=== PATIENT | female | born 1980 | race Two or more races ===

== ENCOUNTER 2024-11-10 11:35 | Emergency (ER) | payer MEDICAID, SELFPAY ==
[2024-11-10 11:57] VITALS: BP 139/86; PULSE 76; RESP 16; TEMP 36.8; O2SAT 97; BMI 35.6
[2024-11-10] MEDS: DiphenhydrAMINE 25 MG CAPSULE PO (12:23)
[2024-11-10] MEDS: DEXAMETHASONE SOD PHOS INJ 10 MG/ML VIAL PO (12:23)
[2024-11-10 13:56] LABS: Alanine Aminotransferase 30 U/L (10-49); Albumin, Serum 4.4 gm/dL (3.5-5.0); Albumin/Globulin Ratio 1.6 (1.2-2.2); Alkaline Phosphatase 88 U/L (46-116); Anion Gap 8 (7-16); Aspartate Amino Transferase 20 U/L (0-34); BUN/Creatinine Ratio 18 Ratio (12-20); Bilirubin,Total 0.6 mg/dL (0.3-1.2); Blood Urea Nitrogen 11 mg/dL (9-23); Calcium 9.8 mg/dL (8.3-10.6); Calcium (Corrected) 9.8 mg/dL (8.5-10.1); Carbon Dioxide 28.7 mMol/L (20.0-31.0); Chloride 104 mMol/L (98-107); Creatinine (Component) 0.6 mg/dL (0.6-1.3); Estimated Creatinine Clearance 120.2 mL/min (>60); Globulin 2.7 gm/dL (2.3-3.5); Glucose 85 mg/dL (74-106); Osmolality,Calculated 279 (275-295); Potassium 3.9 mMol/L (3.4-5.1); Sodium 141 mMol/L (136-145); Total Protein 7.1 gm/dL (5.7-8.2); eGFR > 60 See Note
--- NOTE | 2024-11-10 14:03 | EDNOTE_ITS ---
ED Skin Abcess FB-RME/HPI General Chief complaint: Skin/Abscess/Foreign Body Stated complaint: ITCHING ON ENTIRE BODY X2 DAYS Time Seen by Provider: 11/10/24 11:40 Arrival date/time: 11/10/24 11:35 44-year-old female presents the emergency department today complains of a 2-day history of itching patient ports no fever nausea or vomiting no rash Limitations: no limitations Related Data Previous Rx's ?Medication ?Instructions ?Recorded azithromycin 250 mg tablet See Rx Instructions PO .COM PLEX #6 06/04/22 tabs ibuprofen 600 mg tablet 600 mg PO TID PRN fever or p ain 06/04/22 #30 tabs diphenhydramine HCl 25 mg capsule 25 mg PO Q8H PRN all ergic symptoms 11/10/24 (Benadryl) #30 caps prednisone 20 mg tablet 20 mg PO BID 3 days #6 tabs 11/10/24 Allergies Allergy/AdvReac Type Severity Reaction Status Date / Time No Known Allergies Allergy Verified 11/10/24 11:38 Review of Systems Review of Systems Systems Reviewed: All systems reviewed, normal except as documented Constitutional Constitutional: Reports system reviewed and no additional complaints, except as documented, Denies fever(s) and Denies headache(s) Eyes Eyes: Reports system reviewed and no additional complaints, except as documented and Denies blurry vision ENT Ears, Nose, Mouth, and Throat: Reports system reviewed and no additional complaints, except as documented, Denies headache(s), Denies nasal congestion and Denies nasal discharge Cardiovascular Cardiovascular: Reports system reviewed and no additional complaints, except as documented, Denies chest pain and Denies dyspnea Respiratory Respiratory: Reports system reviewed and no additional complaints, except as documented, Denies chest congestion, Denies cough and Denies dyspnea Gastrointestinal Gastrointestinal: Reports system reviewed and no additional complaints, except as documented and Denies abdominal pain Integumentary/Breasts Skin/Breast: Reports system reviewed and no additional complaints, except as documented and Reports pruritus Neurologic Neurologic: Reports system reviewed and no additional complaints, except as documented, Reports as per HPI and Denies headache(s) Past Medical History Social History SMOKING STATUS: Never smoker ED Exam General Limitations: Present no limitations General appearance: Present alert and in no apparent distress Head Head exam: Present atraumatic, normocephalic and normal inspection Eye Eye exam: Present normal appearance, PERRL and EOMI ENT ENT exam: Present normal exam, normal oropharynx and mucous membranes moist Neck Neck exam: Present normal inspection, full ROM and trachea midline Chest Chest inspection: Present normal inspection and symmetric chest wall rise Respiratory Respiratory exam: Present normal lung sounds bilaterally Cardiovascular Cardiovascular exam: Present regular rate, normal rhythm and normal heart sounds Abdominal Exam Abdominal exam: Present soft and normal bowel sounds Extremities Exam Extremities exam: Present normal inspection and full ROM Back Exam Back exam: Present normal inspection and full ROM Neurological Exam Neurological exam: Present alert, oriented X3 and CN II-XII intact Psychiatric Psychiatric exam: Present normal affect and normal mood Skin Skin exam: Present warm, dry, intact and normal color Course Quality Measures none Orders Category Date Time Status CMP [Comprehensive Metabolic Panel] Stat Lab 11/10/24 12:46 Completed Dexamethasone Inj [Decadron Inj] Med 11/10/24 12:17 Discontinued 10 mg PO X1 ONE DiphenhydrAMINE [Benadryl] Med 11/10/24 12:17 Discontinued 25 mg PO X1 ONE Vital Signs Vital signs: Vital Signs Temperature 98.2 F 11/10/24 11:57 Pulse Rate 76 11/10/24 11:57 Respiratory Rate 16 11/10/24 11:57 Blood Pressure 139/86 H 11/10/24 11:57 Pulse Oximetry (%) 97 11/10/24 11:57 Oxygen Delivery Method Room Air 11/10/24 11:57 O2 saturation 97% room air within the limits Skin / Abscess / Foreign Body MDM Narrative MDM Narrative:: 44-year-old female presents the emergency department today complains of a 2-day history of itching patient ports no fever nausea or vomiting no rash Lab work obtained no acute emergent findings noted Patient medicated with Benadryl and steroids Time reevaluation patient reports she no longer has any itching Chemistry is unremarkable Patient discharged home in no distress to follow-up with primary care doctor in the next 24 to 48 hours and for any worsening symptoms to return to the ER immediately Patient data External records reviewed:: [facility] previous records Clinical information provided by:: patient Social determinants that could affect healthcare access:: none Patient has the following chronic illnesses:: None How is presenting disease/condition affected by chronic disease/condition?: uneffected by Evaluation data The following diagnostics were reviewed and interpreted by me:: lab results Lab and/or radiology exams considered but not ordered:: Lab obtain Interpretation Summary: Reviewed by me Medications / Prescriptions Medications or Prescriptions considered but not ordered:: Given Medication administrations:: Medication Administration History Discontinued Medications Dexamethasone Sodium Phosphate (Dexamethasone Sod Phos Inj 10 Mg/Ml Vial) 10 mg PO X1 ONE Stop: 11/10/24 12:18 Last Admin: 11/10/24 12:23 Dose: 10 mg Documented By: GRIS Diphenhydramine HCl (Diphenhydramine 25 Mg Capsule) 25 mg PO X1 ONE Stop: 11/10/24 12:18 Last Admin: 11/10/24 12:23 Dose: 25 mg Documented By: GRIS Given Consultations Consultation(s) initiated? (list below): No Diagnosis Skin/Abscess Differential Diagnosis: abscess of skin or subcutaneous tissue, cellulitis and contact dermatitis Most likely diagnosis given after review of the tests above:: Rash Admission Indicated Admission indicated?: not indicated Admission Request Was there a request for admission?: No Disposition Plan Disposition Plan: Discharge Discharge Attestation Discharge Attestation: The patient and all family members were given an opportunity to ask questions and understood the discharge instructions. Discharge instructions specifically effects, indications for sooner follow up or return to the emergency department, and the expected course of current diagnosis. Patient condition: Stable Discharge Plan Plan Patient Disposition: HOME (Self Care) Disposition Comment: Stable Prescriptions/Referrals Prescriptions/Med Rec: New prednisone 20 mg tablet 20 mg PO BID 3 Days Qty: 6 0RF diphenhydramine HCl [Benadryl] 25 mg capsule 25 mg PO Q8H PRN (Reason: allergic symptoms) Qty: 30 0RF No Action azithromycin 250 mg tablet See Rx Instructions .ROUTE .COMPLEX Qty: 6 0RF Rx Instructions: For 250 mg dose pack: take 500 mg today (day 1), then 250 mg for 4 days (days 2-5) ibuprofen 600 mg tablet 600 mg PO TID PRN (Reason: fever or pain) Qty: 30 0RF Referrals: Mich Jett MD [Primary Care Provider] - 11/12/24 Problem List Clinical Impression: Pruritus Patient/Caregiver Discharge Instructions Additional Instructions: Please follow up with your primary care doctor in the next 24-48hrs for any worsening symptoms return here immediately Print Language: Yoruba Stand Alone Forms: Meg Award Info., Patient Portal Info Letter PA/STAFF VETERINARIAN Supervising Physician PA/STAFF VETERINARIAN Supervising Physician: Dr Huang
== END 2024-11-10 14:11 | disposition home or self-care (01) ==
PROVIDERS: Nurse Practitioner Primary Care; Emergency Provider Emergency Medicine; PCP Internal Medicine
DX: L29.9 Pruritus, unspecified (principal)
CPT/HCPCS: 36415; 80053; 99283; J1100; A9270

== ENCOUNTER 2024-12-19 12:13 | Emergency (ER) | payer MEDICAID, SELFPAY ==
[2024-12-19 12:54] VITALS: BP 130/85; PULSE 67; RESP 18; TEMP 36.7; O2SAT 98; BMI 36.1
--- NOTE | 2024-12-19 13:09 | XR_ITS ---
Examination: Knee bilateral, 6 views Examination: AP oblique lateral each knee total 6 views Exam date and time: December 19, 2024, 1315 hours INDICATIONS: Knee pain years. FINDINGS: Bilateral moderate to advanced tricompartment osteoarthritis, most severe medial and patellofemoral joints No acute fracture Bilateral moderate knee effusions IMPRESSION: Bilateral moderate to advanced tricompartment osteoarthritis
--- NOTE | 2024-12-19 13:09 | EDNOTE_ITS ---
Lower Extremity Injury RME/HPI General Chief Complaint: Extremity Injury, Lower Stated Complaint: BILATERAL KNEE PAIN X3 YEARS Time Seen by Provider: 12/19/24 12:38 Arrival date/time: 12/19/24 12:13 This is a 44-year-old female that comes in with complaints of bilateral knee pain for the past 2 years. Patient states that she has on and off swelling to bilateral knees. Patient was seen by her primary provider and x-rays were ordered. Patient came to the emergency room for the x-rays. I explained to patient that this is usually done as an outpatient but she would like the x-rays done now. Patient denies trauma Related Data Previous Rx's ?Medication ?Instructions ?Recorded azithromycin 250 mg tablet See Rx Instructions PO .COM PLEX #6 06/04/22 tabs ibuprofen 600 mg tablet 600 mg PO TID PRN fever or p ain 06/04/22 #30 tabs diphenhydramine HCl 25 mg capsule 25 mg PO Q8H PRN all ergic symptoms 11/10/24 (Benadryl) #30 caps ibuprofen 800 mg tablet 800 mg PO Q6H PRN pain #14 t abs 12/19/24 Allergies Allergy/AdvReac Type Severity Reaction Status Date / Time No Known Allergies Allergy Verified 11/10/24 11:38 Course Orders Category Date Time Status XR knee BI 3V Stat Exams 12/19/24 13:09 Completed Vital Signs Vital signs: Vital Signs Temperature 98.1 F 12/19/24 12:54 Pulse Rate 67 12/19/24 12:54 Respiratory Rate 18 12/19/24 12:54 Blood Pressure 130/85 H 12/19/24 12:54 Pulse Oximetry (%) 98 12/19/24 12:54 Oxygen Delivery Method Room Air 12/19/24 12:54 Extremity Injury, Lower MDM Narrative MDM Narrative:: Bilateral knee x ray: FINDINGS: Bilateral moderate to advanced tricompartment osteoarthritis, most severe medial and patellofemoral joints No acute fracture Bilateral moderate knee effusions IMPRESSION: Bilateral moderate to advanced tricompartment osteoarthritis Spoke to patient about results. Patient has had this for over 2 years. Will send patient home with anti-inflammatories. Patient will need to follow-up with primary provider in 1 to 2 days. Come back to the emergency room if symptoms change or worsen. Discharge Plan Plan Patient Disposition: HOME (Self Care) Patient condition on transfer: Stable Prescriptions/Referrals Prescriptions/Med Rec: New ibuprofen 800 mg tablet 800 mg PO Q6H PRN (Reason: pain) Qty: 14 0RF No Action azithromycin 250 mg tablet See Rx Instructions .ROUTE .COMPLEX Qty: 6 0RF Rx Instructions: For 250 mg dose pack: take 500 mg today (day 1), then 250 mg for 4 days (days 2-5) ibuprofen 600 mg tablet 600 mg PO TID PRN (Reason: fever or pain) Qty: 30 0RF diphenhydramine HCl [Benadryl] 25 mg capsule 25 mg PO Q8H PRN (Reason: allergic symptoms) Qty: 30 0RF Referrals: No Primary/Family,Physician [Primary Care Provider] - In 1 week Problem List Clinical Impression: Knee osteoarthritis Patient/Caregiver Discharge Instructions Discharge Activity: activity as tolerated Education Materials: Monica RADFORD Additional Instructions: Ameena un milly con arenas medico de cabecera en las proximas 24-48 horas. Regrese a la josep de emergencias si hay evidencia de que los signos o sintomas empeoran. Print Language: Fijian Stand Alone Forms: Meg Award Info., Patient Portal Info Letter PA/SURFACE WATER MANAGER Supervising Physician PA/SURFACE WATER MANAGER Supervising Physician: jayson
== END 2024-12-19 14:17 | disposition home or self-care (01) ==
PROVIDERS: Emergency Provider Emergency Medicine
DX: M17.0 Bilateral primary osteoarthritis of knee (principal)
CPT/HCPCS: 73562; 99283

== ENCOUNTER 2025-01-03 14:31 | Emergency (ER) | payer MEDICAID, SELFPAY ==
[2025-01-03] MEDS: KETOROLAC INJ 30 MG/ML VIAL IM (15:23)
== END 2025-01-03 15:30 | disposition home or self-care (01) ==
PROVIDERS: Emergency Provider Emergency Medicine; Referring Provider Emergency Medicine
DX: M17.0 Bilateral primary osteoarthritis of knee (principal)
CPT/HCPCS: 96372; 99283; J1885

== ENCOUNTER 2025-02-28 13:32 | Emergency (ER) | payer MEDICAID, SELFPAY ==
[2025-02-28 13:35] VITALS: BMI 33.5
--- NOTE | 2025-02-28 13:45 | XR_ITS ---
Examination: Right hand 2 views Technique: AP lateral right hand 2 views Indications: Hand pain years. Findings: Moderate osteopenia. No acute fracture. Mild osteoarthritis distal interphalangeal joints second through fifth digits and interphalangeal joint first digit No foreign bodies Impression: No fractures. Mild osteoarthritis. No erosive arthritis
--- NOTE | 2025-02-28 13:45 | XR_ITS ---
Examination: Forearm, right, 2 views. Technique: Forearm, AP, lateral 2 views Date and time of exam: February 28, 2025, 1358 hrs. Indications: Forearm pain years. Findings: Adequate bone density. No fracture or dislocation. No erosive or other significant arthritic change Impression: No erosive or other significant arthritic change Negative for elbow effusion
--- NOTE | 2025-02-28 13:45 | EDNOTE_ITS ---
ED Extremity Problem RME/HPI General Chief complaint: Extremity Problem,Nontraumatic Stated complaint: JAVED. KNEE PAIN X2 DAYS Time Seen by Provider: 02/28/25 13:43 Arrival date/time: 02/28/25 13:32 This is a 45-year-old female that comes into the emergency room with complaints of bilateral knee pain for the past 2 days. Patient states that she is suppose to have surgery to her right knee already. Patient states that they have not set a date yet. Patient has been taking Tylenol for pain at home but is not helping. Patient denies any new trauma swelling or any change of symptoms. Related Data Previous Rx's ?Medication ?Instructions ?Recorded azithromycin 250 mg tablet See Rx Instructions PO .COM PLEX #6 06/04/22 tabs ibuprofen 600 mg tablet 600 mg PO TID PRN fever or p ain 06/04/22 #30 tabs diphenhydramine HCl 25 mg capsule 25 mg PO Q8H PRN all ergic symptoms 11/10/24 (Benadryl) #30 caps ibuprofen 800 mg tablet 800 mg PO Q6H PRN pain #14 t abs 12/19/24 ibuprofen 800 mg tablet 800 mg PO Q6H PRN pain #14 t abs 02/28/25 Allergies Allergy/AdvReac Type Severity Reaction Status Date / Time No Known Allergies Allergy Verified 02/28/25 13:35 Review of Systems Review of Systems Systems Reviewed: All systems reviewed, normal except as documented Past Medical History Social History SMOKING STATUS: Never smoker ED Exam Narrative Physical exam: VITAL SIGNS: Reviewed. GENERAL APPEARANCE: Alert and interactive, follows commands, no acute distress HEAD AND FACE: Non-traumatic. ENT: PERRL, conjuctiva pink and clear, eyelid no trauma, Mucous membrane moist. NECK: Supple, nontender, no nuchal rigidity. CHEST: No tenderness, no crepitus, no paradoxical movement, no retractions. LUNGS: breathing even and unlabored HEART: Regular rate, cap refill less than 2 seconds ABDOMEN: Soft, nondistended, no guarding, nontender NEUROLOGICAL: Gross motor function intact sensory function intact, Appropriate for age. MUSCULOSKELETAL: low back nontender, full range of motion. EXTREMITIES: No redness no swelling no skin breakdown on bilateral foot and leg. Distal neurovascular status intact bilateral foot SKIN: Color pink, dry, no rash, no lacerations, no abrasions, no contusions. Course Quality Measures none Orders Category Date Time Status XR forearm RT 2V Stat Exams 02/28/25 13:45 Completed XR hand RT 2V Stat Exams 02/28/25 13:45 Completed Acetaminophen Tab [Tylenol ES Tab] Med 02/28/25 14:11 Discontinued 1,000 mg PO X1 ONE Ibuprofen Tab [Motrin Tab] Med 02/28/25 14:11 Discontinued 800 mg PO X1 ONE Vital Signs Vital signs: Vital Signs Temperature 99.1 F 02/28/25 14:00 Pulse Rate 82 02/28/25 14:00 Respiratory Rate 18 02/28/25 14:00 Blood Pressure 132/78 H 02/28/25 14:00 Pulse Oximetry (%) 98 02/28/25 14:00 Oxygen Delivery Method Room Air 02/28/25 14:00 Extremity Problem MDM Narrative MDM Narrative:: Patient complains of chronic bilateral knee pain more so on the right than the left. Patient has no trauma. No swelling. No erythema. No infection suspected at this time. Patient is already being worked up by her primary provider for knee pain and is pending surgery per patient. Will give patient Tylenol ibuprofen here. Will send patient home with 800 mg ibuprofen at home. Patient told to follow-up with primary provider in 1 to 2 days. Come back to the emergency room if symptoms change or worsen Patient data External records reviewed:: [facility] previous records Clinical information provided by:: patient Social determinants that could affect healthcare access:: none Patient has the following chronic illnesses:: none How is presenting disease/condition affected by chronic disease/condition?: no chronic disease Evaluation data The following diagnostics were reviewed and interpreted by me:: other (specify) (none ) Lab and/or radiology exams considered but not ordered:: none Interpretation Summary: see note Medications / Prescriptions Medications or Prescriptions considered but not ordered:: none Medication administrations:: Medication Administration History Discontinued Medications Acetaminophen (Acetaminophen 500 Mg Tablet) 1,000 mg PO X1 ONE Stop: 02/28/25 14:12 Last Admin: 02/28/25 14:35 Dose: 1,000 mg Documented By: Ibuprofen (Ibuprofen Tab 400 Mg Tablet) 800 mg PO X1 ONE Stop: 02/28/25 14:12 Last Admin: 02/28/25 14:36 Dose: 800 mg Documented By: see [facility] Consultations Consultation(s) initiated? (list below): No Diagnosis Most likely diagnosis given after review of the tests above:: chronic knee pain Admission Indicated Admission indicated?: not indicated Admission Request Was there a request for admission?: No Disposition Plan Disposition Plan: Discharge Discharge Attestation Discharge Attestation: The patient and all family members were given an opportunity to ask questions and understood the discharge instructions. Discharge instructions specifically effects, indications for sooner follow up or return to the emergency department, and the expected course of current diagnosis. Patient condition: Stable Discharge Plan Plan Patient Disposition: HOME (Self Care) Patient condition on transfer: Stable Prescriptions/Referrals Prescriptions/Med Rec: New ibuprofen 800 mg tablet 800 mg PO Q6H PRN (Reason: pain) Qty: 14 0RF No Action azithromycin 250 mg tablet See Rx Instructions .ROUTE .COMPLEX Qty: 6 0RF Rx Instructions: For 250 mg dose pack: take 500 mg today (day 1), then 250 mg for 4 days (days 2-5) ibuprofen 600 mg tablet 600 mg PO TID PRN (Reason: fever or pain) Qty: 30 0RF diphenhydramine HCl [Benadryl] 25 mg capsule 25 mg PO Q8H PRN (Reason: allergic symptoms) Qty: 30 0RF ibuprofen 800 mg tablet 800 mg PO Q6H PRN (Reason: pain) Qty: 14 0RF Problem List Clinical Impression: Chronic knee pain Patient/Caregiver Discharge Instructions Discharge Activity: activity as tolerated Education Materials: Knee Pain, ED RICE Additional Instructions: Ameena un milly con arenas medico de cabecera en las proximas 24-48 horas. Regrese a la josep de emergencias si hay evidencia de que los signos o sintomas empeoran. Print Language: South African Stand Alone Forms: Meg Award Info., Patient Portal Info Letter PA/DOWEL PIN WORKER Supervising Physician PA/DOWEL PIN WORKER Supervising Physician: [email or web address]
[2025-02-28 14:00] VITALS: BP 132/78; PULSE 82; RESP 18; TEMP 37.3; O2SAT 98
[2025-02-28] MEDS: ACETAMINOPHEN 500 MG TABLET 1000 MG PO (14:35)
[2025-02-28] MEDS: IBUPROFEN TAB 400 MG TABLET 800 MG PO (14:36)
== END 2025-02-28 15:02 | disposition home or self-care (01) ==
LOC: SERX 14:49
PROVIDERS: Emergency Provider Emergency Medicine; PCP Internal Medicine
DX: M19.041 Primary osteoarthritis, right hand (principal); G89.29 Other chronic pain; M25.562 Pain in left knee; M25.561 Pain in right knee; M79.631 Pain in right forearm
CPT/HCPCS: 73090; 73120; 99283; A9270

== ENCOUNTER 2025-03-30 13:13 | Outpatient (AMB) | payer MEDICAID, SELFPAY ==
[2025-03-30 13:32] VITALS: BP 120/82; PULSE 76; RESP 18; TEMP 36.6; O2SAT 98; BMI 33.6
--- NOTE | 2025-03-30 13:32 | PD.ORTHCLVIS ---
Vital signs 03/30/25 13:32 Height 1.52 m Height Method Measured Weight 78.216 kg Weight Measurement Method Standing Scale BMI 33.6 BP 120/82 Blood Pressure Source Automatic Cuff Blood Pressure Location Left Upper Arm Position Sitting Respiration 18 Pulse 76 Pulse Source Monitor Temp 97.9 F Temp Source Temporal Artery Scan Pulse Oximetry (%) 98 Oxygen Delivery Method Room Air Med/Allergies Allergies & Medications Allergies No Known Allergies Allergy (Verified 03/30/25 13:33) Medication Reconciliation azithromycin 250 mg tablet See Rx Instructions PO .COMPLEX #6 tabs 06/04/22 [Rx Confirmed 03/30/25] ibuprofen 600 mg tablet 600 mg PO TID PRN fever or pain #30 tabs 06/04/22 [Rx Confirmed 03/30/25] diphenhydramine HCl 25 mg capsule (Benadryl) 25 mg PO Q8H PRN allergic symptoms #30 caps 11/10/24 [Rx Confirmed 03/30/25] ibuprofen 800 mg tablet 800 mg PO Q6H PRN pain #14 tabs 12/19/24 [Rx Confirmed 03/30/25] ibuprofen 800 mg tablet 800 mg PO Q6H PRN pain #14 tabs 02/28/25 [Rx Confirmed 03/30/25] meloxicam 7.5 mg tablet 7.5 mg PO QDAY #45 tabs 03/30/25 [Rx] Exam Exam Patient is in no acute distress and is cooperative with the examination today. Breathing is nonlabored. In no respiratory distress. Bilateral extremities were evaluated and demonstrates sensation intact to light touch. Palpable pedal pulses are present. No significant edema is present. Bilateral hips were examined. The patient has no pain with log roll of the hips. Internal rotation to 30 degrees and external rotation to 30 degrees is painless. Negative FADIR. The left knee was examined. The left knee is in varus alignment. Range of motion from 0-115 degrees. Knee is stable to varus and valgus as well as AP translation with <5mm. Patient has a negative McMurrays. There is no pain with patellofemoral compression and no crepitus noted. The knee is tender to palpation medially. The right knee was also examined. The right knee is in varus alignment. Range of motion from 0-120 degrees. Knee is stable to varus and valgus as well as AP translation with <5mm. Patient has a negative McMurrays. There is no pain with patellofemoral compression and no crepitus noted. The knee is tender to palpation medially. Bilateral knee x-rays reviewed that are nonweightbearing. Demonstrates significant osteophytes medially and joint space narrowing Assessment and Plan Problem List (1) Degenerative arthritis of knee, bilateral: Status: Acute Plan: Patient is a pleasant 45-year-old female with bilateral knee pain and bilateral knee arthritis. We discussed different treatment options. We discussed nonoperative and operative options. She would like to try cortisone injections today Recommend knee cortisone injection as patient would like to proceed with conservative treatment at this time. The risks and benefits of the procedure were reviewed with the patient and patient gave verbal consent to continue with the procedure. Procedure: performed by Dr. Bello Using sterile technique the left knee was thoroughly prepped with alcohol, and approximately 1 cc of Depo-Medrol 80mg/mL and 4 cc of 0.2% ropivacaine was injected without resistance into the medial tibial femoral joint space. The patient tolerated the procedure. Recommend knee cortisone injection as patient would like to proceed with conservative treatment at this time. The risks and benefits of the procedure were reviewed with the patient and patient gave verbal consent to continue with the procedure. Procedure: performed by Dr. Bello Using sterile technique the Right knee was thoroughly prepped with alcohol, and approximately 1 cc of Depo-Medrol 80mg/mL and 4 cc of 0.2% ropivacaine was injected without resistance into the medial tibial femoral joint space. The patient tolerated the procedure. 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 Level 4 (2604-7655) Surgical Proc/IM SQ injection Minor Surgical Procedure: Yes (BILATERAL KNEE INJECTION) Medication Given Medication Given Medication Given: Yes Documented Dose Given: 1 Route: Infiitration Medication Given Medication Given Medication Given: Yes Documented Dose Given: 1 Route: Infiitration Medication Given Medication Given Medication Given: Yes Documented Dose Given: 4 Route: Infiitration Medication Given Medication Given Medication Given: Yes Documented Dose Given: 4 Route: Infiitration Office Meds methylprednisolone acetate 80 mg/mL suspension for injection Performing Provider: Nehemiah Bello MD Performing Location: [facility] Administered by: Nehemiah Bello MD on 03/30/25 13:57 Dose Route Admin Location Dispensed Lot Number Expiration Date ND Slip Cover Cutter 80 mg intra-articular 1 mL [id number] 01/15/27 [address]-2 [employer] methylprednisolone acetate 80 mg/mL suspension for injection Performing Provider: Nehemiah Bello MD Performing Location: [facility] Administered by: Nehemiah Bello MD on 03/30/25 13:57 Dose Route Admin Location Dispensed Lot Number Expiration Date ND Slip Cover Cutter 80 mg intra-articular 1 mL [id number] 01/15/27 [address]-4 [employer] ropivacaine (PF) 2 mg/mL (0.2 %) injection solution Performing Provider: Nehemiah Bello MD Performing Location: [facility] Administered by: Nehemiah Bello MD on 03/30/25 13:57 Dose Route Admin Location Dispensed Lot Number Expiration Date ND Slip Cover Cutter 20 mL Infiltration 20 mL [id number] 06/17/26 78798-127-88 [facility] ropivacaine (PF) 2 mg/mL (0.2 %) injection solution Performing Provider: Nehemiah Bello MD Performing Location: [facility] Administered by: Nehemiah Bello MD on 03/30/25 13:57 Dose Route Admin Location Dispensed Lot Number Expiration Date ND Slip Cover Cutter 20 mL Infiltration 20 mL [id number] 06/17/26 17486-005-97 [facility] Intake Visit Data Collection New Patient or Established: New Patient (never been to [facility]) Reason for Visit:: OSTEOARTHRITIS BILATERAL KNEE Seen by Clinical Staff ONLY (RN/MA): No 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 Required: Yes PCP or OBGYN visit in last 3 months: Yes Hx Now: No Do You Feel Safe at Home: Yes Authorities Contacted: N/A Questionairres Past Medical History Past Medical History Have you ever been diagnosed with any of the following: Respiratory Problems Smoking: No Smoking Cessation Counseling: No Smoking Exposure: No Subjective Visit Visit for: new patient and knee Immunization / Flu Flu Vaccine in the Last 12 Months: Yes Flu Vaccine Exclusion Criteria: Already Received History of Present Illness Chief complaint: OSTEOARTHRITIS BILATERAL KNEE Date of injury / onset of symptoms: 3 YEARS AGO Patient is a 45-year-old female with bilateral knee pain of equal severity. Has been ongoing for 3 years. She has had injections in the past and reports they still work. The pain is affecting her quality and happiness. 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
== END 2025-03-30 13:56 | disposition home or self-care (01) ==
LOC: HODSRG 13:13
PROVIDERS: PCP Internal Medicine; Referring Provider Internal Medicine; Supervising Provider Orthopaedic Surgery Adult Reconstructive Orthopaedic Surgery; Visit Provider Orthopaedic Surgery Adult Reconstructive Orthopaedic Surgery
DX: M17.0 Bilateral primary osteoarthritis of knee (principal); M25.562 Pain in left knee; M25.561 Pain in right knee
CPT/HCPCS: 20610; 99203; 99204; J1010; J2795; G0463

== ENCOUNTER 2025-04-04 12:58 | Emergency (ER) | payer MEDICAID, SELFPAY ==
[2025-04-04 13:00] VITALS: BMI 33.4
[2025-04-04 13:19] VITALS: BP 145/94; PULSE 81; RESP 18; TEMP 37.2; O2SAT 99
--- NOTE | 2025-04-04 13:22 | XR_ITS ---
Examination: CT brain head without contrast. 2-D sagittal coronal reconstructions Date and time of exam:1334 hrs. Indications: Left-sided head numbness and swelling beginning 2 days ago. CTDI: vol (mGy):46.9 DLP: (mGycm):872 Technique: Multiple CT axial sections of the brain have been obtained, 5 mm slice thickness. Contrast has not been administered. 2-D sagittal, coronal reconstructions have been obtained Low dose protocols were performed. One or more of the following dose reduction techniques were used; automated exposure control, adjustment of the mA and/or KV according to patient size, use of iterative reconstruction technique. Findings: No significant ventricular enlargement. Intra-axial or extra-axial hemorrhage density is not seen. No mass effect or midline shift Basal cisterns are not remarkable. Fourth ventricle is midline. Cranial vault intact. Impression: Negative for acute hemorrhage, mass effect or midline shift As clinically warranted, brain MRI follow-up would best assess for demyelinating disease, acute ischemic change
--- NOTE | 2025-04-04 13:40 | EDNOTE_ITS ---
<Statement entered by Alexa Ochoa MD - 04/19/25 06:29> As co-signing physician, I was present and available for consult prn. I concur with the plan and care as documented by the midlevel provider. ED Headache RME/HPI General Chief Complaint: Headache Stated Complaint: HALF OF HEAD FEELS SWOLLEN/NUMB, HEADACHE X 2 DAYS Time Seen by Provider: 04/04/25 13:10 Source: patient Arrival date/time: 04/04/25 12:58 45-year-old female with no known medical history presents to the emergency room with a chief complaint of left-sided headache. Patient states her head feels numb and swollen the symptoms have been going on for the last 2 days Mode of arrival: ambulatory Limitations: no limitations Related Data Previous Rx's ?Medication ?Instructions ?Recorded azithromycin 250 mg tablet See Rx Instructions PO .COM PLEX #6 06/04/22 tabs ibuprofen 600 mg tablet 600 mg PO TID PRN fever or p ain 06/04/22 #30 tabs diphenhydramine HCl 25 mg capsule 25 mg PO Q8H PRN all ergic symptoms 11/10/24 (Benadryl) #30 caps ibuprofen 800 mg tablet 800 mg PO Q6H PRN pain #14 t abs 12/19/24 ibuprofen 800 mg tablet 800 mg PO Q6H PRN pain #14 t abs 02/28/25 meloxicam 7.5 mg tablet 7.5 mg PO QDAY #45 tabs 03/19 10/13 Allergies Allergy/AdvReac Type Severity Reaction Status Date / Time No Known Allergies Allergy Verified 04/04/25 13:03 Review of Systems Review of Systems Systems Reviewed: All systems reviewed, normal except as documented Constitutional Constitutional: Reports system reviewed and no additional complaints, except as documented, Denies fatigue, Denies fever(s), Denies headache(s) and Denies weakness Eyes Eyes: Reports system reviewed and no additional complaints, except as documented, Denies blurry vision and Denies change in vision ENT Ears, Nose, Mouth, and Throat: Reports system reviewed and no additional complaints, except as documented, Denies otalgia, Denies headache(s), Denies nasal congestion, Denies throat swelling and Denies vertigo Cardiovascular Cardiovascular: Reports system reviewed and no additional complaints, except as documented, Denies chest pain, Denies dyspnea and Denies dyspnea on exertion Respiratory Respiratory: Reports system reviewed and no additional complaints, except as documented, Denies chest congestion, Denies cough, Denies dyspnea, Denies dyspnea on exertion and Denies wheezing Gastrointestinal Gastrointestinal: Reports system reviewed and no additional complaints, except as documented, Denies abdominal pain, Denies cramping, Denies nausea and Denies vomiting Genitourinary Genitourinary: Reports system reviewed and no additional complaints, except as documented Musculoskeletal Musculoskeletal: Reports system reviewed and no additional complaints, except as documented and Denies back pain Integumentary/Breasts Skin/Breast: Reports system reviewed and no additional complaints, except as documented and Denies wounds Neurologic Neurologic: Reports system reviewed and no additional complaints, except as documented, Denies confusion, Denies headache(s), Denies lack of coordination, Denies vertigo and Denies weakness Psychiatric Psychiatric: Reports system reviewed and no additional complaints, except as documented, Denies anxiety, Denies confusion, Denies depression, Denies paranoia, Denies suicidal ideation and Denies tactile hallucinations Endocrine Endocrine: Reports system reviewed and no additional complaints, except as documented and Denies fatigue Hematologic/Lymphatic Hematologic/Lymphatic: Reports system reviewed and no additional complaints, except as documented and Denies lymphadenopathy Allergic/Immunologic Allergic/Immunologic: Reports system reviewed and no additional complaints, except as documented, Denies throat swelling, Denies urticaria and Denies wheezing ED Exam General Limitations: Present no limitations General appearance: Present alert and in no apparent distress Head Head exam: Present atraumatic Eye Eye exam: Present normal appearance, PERRL and EOMI ENT ENT exam: Present normal exam, normal oropharynx and mucous membranes moist Neck Neck exam: Present normal inspection, full ROM and trachea midline Chest Chest inspection: Present normal inspection and symmetric chest wall rise Respiratory Respiratory exam: Present normal lung sounds bilaterally Cardiovascular Cardiovascular exam: Present regular rate, normal rhythm and normal heart sounds Abdominal Exam Abdominal exam: Present soft and normal bowel sounds Extremities Exam Extremities exam: Present normal inspection and full ROM Back Exam Back exam: Present normal inspection and full ROM Neurological Exam Neurological exam: Present alert, oriented X3, CN II-XII intact, normal gait and reflexes normal Expanded Neurological Exam Patient oriented to: Present person, place and time Speech: Present fluid speech Cranial nerves: Normal: EOM function (II, III, IV, ) and facial sensation (V) Cerebellar function: Present normal gait Motor strength - LUE: 5/5 Motor strength - RUE: 5/5 Motor strength - LLE: 5/5 Motor strength - RLE: 5/5 Coma scale eye opening: spontaneous Coma scale motor response: obeys commands Coma scale verbal response: oriented Coma scale total: 15 Psychiatric Psychiatric exam: Present normal affect and normal mood Skin Skin exam: Present warm, dry, intact and normal color Course Quality Measures none Orders Category Date Time Status CT head/brain wo con Stat Exams 04/04/25 13:22 Completed CBC Stat Lab 04/04/25 13:55 Completed CMP [Comprehensive Metabolic Panel] Stat Lab 04/04/25 13:55 Completed Ketorolac Inj [Toradol Inj] Med 04/04/25 14:48 Discontinued 30 mg IM X1 ONE SUMAtriptan INJ [Imitrex Inj] Med 04/04/25 13:22 Discontinued 6 mg SC X1 ONE Vital Signs Vital signs: Vital Signs Temperature 99.0 F 04/04/25 13:19 Pulse Rate 81 04/04/25 13:19 Respiratory Rate 18 04/04/25 13:19 Blood Pressure 145/94 H 04/04/25 13:19 Pulse Oximetry (%) 99 04/04/25 13:19 Oxygen Delivery Method Room Air 04/04/25 13:19 Headache MDM Narrative MDM Narrative:: 45-year-old female with no known medical history presents to the emergency room with a chief complaint of left-sided headache. Patient states her head feels numb and swollen the symptoms have been going on for the last 2 days Patient is hemodynamically stable and in no apparent distress Physical examination shows a normal neurological exam. Pupils are PERRLA EOMs are intact cranial reflexes are within normal limits. The patient has a normal steady gait. Patient states her left side of her scalp feels numb. Patient is also complaining of a left-sided headache. A CT of the head and brain was completed and was negative for any acute findings. Our radiologist recommends she follows up with her primary care provider as a possible MRI will be indicated if her signs and symptoms continue Patient was discharged and educated to follow-up with primary care provider in the next 24 to 48 hours and return to the emergency room for any evidence of worsening signs or symptoms Patient data External records reviewed:: [facility] previous records Clinical information provided by:: patient Social determinants that could affect healthcare access:: none Patient has the following chronic illnesses:: No chronic illness How is presenting disease/condition affected by chronic disease/condition?: no chronic disease Evaluation data The following diagnostics were reviewed and interpreted by me:: lab results and radiology exam(s) Lab and/or radiology exams considered but not ordered:: Labs and radiology exams considered and ordered Interpretation Summary: CT head and brain-Findings: No significant ventricular enlargement. Intra-axial or extra-axial hemorrhage density is not seen. No mass effect or midline shift Basal cisterns are not remarkable. Fourth ventricle is midline. Cranial vault intact. Impression: Negative for acute hemorrhage, mass effect or midline shift As clinically warranted, brain MRI follow-up would best assess for demyelinating disease, acute ischemic change Medications / Prescriptions Medications or Prescriptions considered but not ordered:: Medication given Medication administrations:: Medication Administration History Discontinued Medications Ketorolac Tromethamine (Ketorolac Inj 60 Mg/2 Ml Vial) 30 mg IM X1 ONE Stop: 04/04/25 14:49 Last Admin: 04/04/25 15:07 Dose: 30 mg Documented By: EF Sumatriptan Succinate (Sumatriptan Inj 6 Mg/0.5 Ml Vial) 6 mg SC X1 ONE Stop: 04/04/25 13:23 Last Admin: 04/04/25 13:54 Dose: 6 mg Documented By: EF Medication given Consultations Consultation(s) initiated? (list below): No Diagnosis Differential diagnosis headache: migraine, tension headache, subarachnoid hemorrhage and headache Most likely diagnosis given after review of the tests above:: Headache Admission Indicated Admission indicated?: not indicated Admission Request Was there a request for admission?: No Disposition Plan Disposition Plan: Discharge Discharge Attestation Discharge Attestation: The patient and all family members were given an opportunity to ask questions and understood the discharge instructions. Discharge instructions specifically effects, indications for sooner follow up or return to the emergency department, and the expected course of current diagnosis. Patient condition: Stable Discharge Plan Plan Patient Disposition: HOME (Self Care) Discharge Disposition comment: Stable Prescriptions/Referrals Prescriptions/Med Rec: No Action meloxicam 7.5 mg tablet 7.5 mg PO QDAY Qty: 45 3RF azithromycin 250 mg tablet See Rx Instructions .ROUTE .COMPLEX Qty: 6 0RF Rx Instructions: For 250 mg dose pack: take 500 mg today (day 1), then 250 mg for 4 days (days 2-5) ibuprofen 600 mg tablet 600 mg PO TID PRN (Reason: fever or pain) Qty: 30 0RF diphenhydramine HCl [Benadryl] 25 mg capsule 25 mg PO Q8H PRN (Reason: allergic symptoms) Qty: 30 0RF ibuprofen 800 mg tablet 800 mg PO Q6H PRN (Reason: pain) Qty: 14 0RF ibuprofen 800 mg tablet 800 mg PO Q6H PRN (Reason: pain) Qty: 14 0RF Referrals: No Primary/Family,Physician [Primary Care Provider] - In 1 week Problem List Clinical Impression: Headache Patient/Caregiver Discharge Instructions Education Materials: Self-Care for Headaches Additional Instructions: Por favor, consulte con arenas m?dico de cabecera en las pr?ximas 24 a 48 horas. Se realiz? anahi tomograf?a computarizada de ricardo y cerebro que result? negativa para cualquier hallazgo mignon. Si rosalio signos y s?ntomas persisten, deber? consultar con arenas m?dico de cabecera, ya que podr?a estar indicada anahi resonancia magn?chris. Si observa cualquier evidencia de empeoramiento de los signos o s?ntomas, acuda inmediatamente a urgencias. Print Language: [place] Stand Alone Forms: Meg Award Info., Patient Portal Info Letter PA/RN PARALEGAL Supervising Physician PA/RN PARALEGAL Supervising Physician: Dr. OCHOA
[2025-04-04] MEDS: SUMAtriptan INJ 6 MG/0.5 ML VIAL SC (13:54)
[2025-04-04 14:16] LABS: Basophils # (Auto) 0.0 Thou/mm3 (0.0-0.2); Basophils % (Auto) 0 % (0-2.5); Eosinophils # (Auto) 0.1 Thou/mm3 (0.0-0.5); Eosinophils % (Auto) 1 % (0-10); Hematocrit 41.9 % (36.0-46.0); Hemoglobin 13.8 g/dL (12.0-16.0); Immature Granulocytes Auto 0.04 Thou/mm3 (0.00-0.00); Lymphocytes # (Auto) 3.5 Thou/mm3 (1.0-4.8); Lymphocytes % (Auto) 36 % (10-50); Mean Corpuscular HGB Conc 32.9 g/dl (31.0-37.0); Mean Corpuscular Hemoglobin 28.6 pg (25.0-35.0); Mean Corpuscular Volume 87 fL (80-100); Monocytes # (Auto) 0.5 Thou/mm3 (0.0-0.8); Monocytes % (Auto) 5 % (0-12); Neutrophils # (Auto) 5.5 Thou/mm3 (1.8-7.7); Neutrophils % (Auto) 57 % (37-80); Nucleated Red Blood Cell # 0.00 Thou/mm3 (0.00-0.00); Nucleated Red Blood Cell % 0 /100 WBC (0); Platelet Count 375 Thou/mm3 (140-440); RDW Standard Deviation 39.8 fL (36.4-46.3); Red Blood Count 4.83 Miln/mm3 (4.00-5.20); White Blood Count 9.6 Thou/mm3 (3.6-11.0)
[2025-04-04 14:24] LABS: Alanine Aminotransferase 18 U/L (10-49); Albumin, Serum 4.4 gm/dL (3.5-5.0); Albumin/Globulin Ratio 1.9 (1.2-2.2); Alkaline Phosphatase 96 U/L (46-116); Anion Gap 9 (7-16); Aspartate Amino Transferase 11 U/L (0-34); BUN/Creatinine Ratio 23 Ratio (12-20); Bilirubin,Total 0.5 mg/dL (0.3-1.2); Blood Urea Nitrogen 14 mg/dL (9-23); Calcium 9.8 mg/dL (8.3-10.6); Calcium (Corrected) 9.8 mg/dL (8.5-10.1); Carbon Dioxide 27.6 mMol/L (20.0-31.0); Chloride 105 mMol/L (98-107); Creatinine (Component) 0.6 mg/dL (0.6-1.3); Estimated Creatinine Clearance 110.2 mL/min (>60); Globulin 2.3 gm/dL (2.3-3.5); Glucose 90 mg/dL (74-106); Osmolality,Calculated 283 (275-295); Potassium 4.1 mMol/L (3.4-5.1); Sodium 142 mMol/L (136-145); Total Protein 6.7 gm/dL (5.7-8.2); eGFR > 60 See Note
[2025-04-04] MEDS: KETOROLAC INJ 60 MG/2 ML VIAL 30 MG IM (15:07)
[2025-04-04 15:28] VITALS: BP 123/83; PULSE 71; RESP 16; TEMP 36.6; O2SAT 98
== END 2025-04-04 15:29 | disposition home or self-care (01) ==
PROVIDERS: Nurse Practitioner Family; Emergency Provider Emergency Medicine
DX: R51.9 Headache, unspecified (principal)
CPT/HCPCS: 36415; 70450; 80053; 85025; 96372; 99283; J1885; J3030

== ENCOUNTER 2025-04-18 17:14 | Emergency (ER) | payer MEDICAID, SELFPAY ==
[2025-04-18 17:28] VITALS: BP 122/84; PULSE 88; RESP 18; TEMP 36.8; O2SAT 96
--- NOTE | 2025-04-18 18:37 | EKG_ITS ---
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
[2025-04-18 19:03] LABS: Basophils # (Auto) 0.0 Thou/mm3 (0.0-0.2); Basophils % (Auto) 0 % (0-2.5); Eosinophils # (Auto) 0.1 Thou/mm3 (0.0-0.5); Eosinophils % (Auto) 1 % (0-10); Hematocrit 38.7 % (36.0-46.0); Hemoglobin 13.0 g/dL (12.0-16.0); Immature Granulocytes Auto 0.02 Thou/mm3 (0.00-0.00); Lymphocytes # (Auto) 3.6 Thou/mm3 (1.0-4.8); Lymphocytes % (Auto) 31 % (10-50); Mean Corpuscular HGB Conc 33.6 g/dl (31.0-37.0); Mean Corpuscular Hemoglobin 29.3 pg (25.0-35.0); Mean Corpuscular Volume 87 fL (80-100); Monocytes # (Auto) 0.7 Thou/mm3 (0.0-0.8); Monocytes % (Auto) 6 % (0-12); Neutrophils # (Auto) 7.3 Thou/mm3 (1.8-7.7); Neutrophils % (Auto) 62 % (37-80); Nucleated Red Blood Cell # 0.00 Thou/mm3 (0.00-0.00); Nucleated Red Blood Cell % 0 /100 WBC (0); Platelet Count 290 Thou/mm3 (140-440); RDW Standard Deviation 41.1 fL (36.4-46.3); Red Blood Count 4.44 Miln/mm3 (4.00-5.20); White Blood Count 11.8 Thou/mm3 (3.6-11.0)
[2025-04-18 19:22] LABS: HCG,Qualitative Serum Negative
[2025-04-18 19:32] LABS: Collection Type, Urine Voided
[2025-04-18 19:42] LABS: Bacteria,Urine 1+; Bilirubin,Urine Negative (Negative); Blood,Urine Negative (Negative); Clarity,Urine Turbid (Clear/Hazy); Color,Urine Yellow (Lt Yel-Yel); Glucose, Urine Negative (Negative); Ketones,Urine Negative (Negative); Leukocyte Esterase,Urine Positive (Negative); Nitrite,Urine Negative (Negative); PH,Urine 5.5 (5.0-7.0); Protein,Urine Trace (Neg - Trace); RBC,Urine 6 /hpf (0-3); Specific Gravity,Urine 1.032 (1.001-1.035); Squamous Epithelial Cell,Urine 75 /hpf (0-5); Urobilinogen,Urine 2.0 mg/dL (0.0-1.0); WBC,Urine 4 /hpf (0-5)
[2025-04-18 19:59] LABS: Alanine Aminotransferase 20 U/L (10-49); Albumin, Serum 4.2 gm/dL (3.5-5.0); Albumin/Globulin Ratio 1.7 (1.2-2.2); Alkaline Phosphatase 97 U/L (46-116); Anion Gap 10 (7-16); Aspartate Amino Transferase 34 U/L (0-34); BUN/Creatinine Ratio 17 Ratio (12-20); Bilirubin,Total 0.5 mg/dL (0.3-1.2); Blood Urea Nitrogen 10 mg/dL (9-23); Calcium 9.8 mg/dL (8.3-10.6); Calcium (Corrected) 9.8 mg/dL (8.5-10.1); Carbon Dioxide 26.8 mMol/L (20.0-31.0); Chloride 106 mMol/L (98-107); Creatinine (Component) 0.6 mg/dL (0.6-1.3); Estimated Creatinine Clearance 110.9 mL/min (>60); Globulin 2.5 gm/dL (2.3-3.5); Glucose 86 mg/dL (74-106); Osmolality,Calculated 282 (275-295); Potassium 3.5 mMol/L (3.4-5.1); Sodium 143 mMol/L (136-145); Total Protein 6.7 gm/dL (5.7-8.2); Troponin I < 0.020 ng/mL (0.0-0.045); eGFR > 60 See Note
[2025-04-18 20:30] VITALS: BP 117/80; PULSE 79; RESP 19; TEMP 36.8; O2SAT 98
--- NOTE | 2025-04-18 20:45 | EDNOTE_ITS ---
ED Dizzyness RME/HPI General Chief Complaint: General Adult/Misc Complain Stated Complaint: BS MONITOR ON L) ARM CAUSING DISCOMFORT Time Seen by Provider: 04/18/25 18:21 Arrival date/time: 04/18/25 17:14 This is a case of 45-year-old female with history of prediabetes came in in the emergency room due to dizziness and general weakness patient checked his blood sugar on the monitor and noted to be 65 patient also complaining of discomfort on the area of the glucose monitoring on the left arm but no redness no cellulitis persistence of the symptoms this patient decided to sought consult here in the emergency room Limitations: no limitations Related Data Previous Rx's ?Medication ?Instructions ?Recorded azithromycin 250 mg tablet See Rx Instructions PO .COM PLEX #6 06/04/22 tabs ibuprofen 600 mg tablet 600 mg PO TID PRN fever or p ain 06/04/22 #30 tabs diphenhydramine HCl 25 mg capsule 25 mg PO Q8H PRN all ergic symptoms 11/10/24 (Benadryl) #30 caps ibuprofen 800 mg tablet 800 mg PO Q6H PRN pain #14 t abs 12/19/24 ibuprofen 800 mg tablet 800 mg PO Q6H PRN pain #14 t abs 02/28/25 meloxicam 7.5 mg tablet 7.5 mg PO QDAY #45 tabs 03/19 10/13 nitrofurantoin 100 mg PO BID #20 caps 04/18 monohydrate/macrocrystals 100 mg capsule (Macrobid) Allergies Allergy/AdvReac Type Severity Reaction Status Date / Time No Known Allergies Allergy Verified 04/18/25 17:21 Review of Systems Review of Systems Systems Reviewed: All systems reviewed, normal except as documented Constitutional Constitutional: Reports system reviewed and no additional complaints, except as documented and Reports as per HPI Cardiovascular Cardiovascular: Reports system reviewed and no additional complaints, except as documented and Reports as per HPI Respiratory Respiratory: Reports system reviewed and no additional complaints, except as documented and Reports as per HPI Gastrointestinal Gastrointestinal: Reports system reviewed and no additional complaints, except as documented and Reports as per HPI Genitourinary Genitourinary: Reports system reviewed and no additional complaints, except as documented and Reports as per HPI Musculoskeletal Musculoskeletal: Reports system reviewed and no additional complaints, except as documented and Reports as per HPI Neurologic Neurologic: Reports system reviewed and no additional complaints, except as documented and Reports as per HPI Past Medical History Past Medical History RESPIRATORY: Negative Smoking, Smoking Cessation Counseling or Smoking Exposure Social History SMOKING STATUS: Never smoker ED Exam General Limitations: Present no limitations General appearance: Present alert, in no apparent distress and other (Patient is awake alert oriented not in distress nontoxic looking well-hydrated well- nourished) Head Head exam: Present atraumatic, normocephalic and normal inspection Eye Eye exam: Present normal appearance, PERRL, EOMI and other (PERRL EOM intact normal conjunctiva no papilledema) ENT ENT exam: Present normal exam, normal oropharynx, mucous membranes moist and other (HEENT exam is normal and unremarkable) Neck Neck exam: Present normal inspection, full ROM, trachea midline and other (Negative for meningeal sign); Absent tenderness, meningismus or lymphadenopathy Chest Chest inspection: Present normal inspection and symmetric chest wall rise; Absent tenderness Respiratory Respiratory exam: Present normal lung sounds bilaterally; Absent respiratory distress, wheezes, stridor, accessory muscle use or prolonged expiratory phase Cardiovascular Cardiovascular exam: Present regular rate, normal rhythm and normal heart sounds; Absent bradycardia, tachycardia, irregular rhythm, systolic murmur or diastolic murmur Abdominal Exam Abdominal exam: Present soft and normal bowel sounds; Absent distention, tenderness, guarding, rebound, rigidity, diminished bowel sounds, hyperactive bowel sounds, hypoactive bowel sounds or organomegaly Extremities Exam Extremities exam: Present normal inspection and full ROM Back Exam Back exam: Present normal inspection and full ROM Neurological Exam Neurological exam: Present alert, oriented X3, CN II-XII intact, normal gait, reflexes normal and other (Awake alert oriented x 4 no focal deficit GCS 15/15 steady gait memory intact no slurring speech no facial droop CN II through XII is normal negative Babinski motor sensory reflex normal); Absent motor sensory deficit Psychiatric Psychiatric exam: Present normal affect and normal mood Skin Skin exam: Present warm, dry, intact, normal color and other (No abscess no cellulitis) Course Quality Measures none Orders Category Date Time Status EKG (ED ONLY) *Do not use* NOW Care 04/18/25 18:38 Completed EKG (ED Only) Stat Exams 04/18/25 18:37 Draft CBC Stat Lab 04/18/25 18:52 Completed CMP [Comprehensive Metabolic Panel] Stat Lab 04/18/25 18:52 Completed HCG,Qualitative Serum Stat Lab 04/18/25 18:52 Completed Troponin I Stat Lab 04/18/25 18:52 Completed Urinalysis Stat Lab 04/18/25 19:11 Completed Vital Signs Vital signs: Vital Signs Temperature 98.3 F 04/18/25 17:28 Pulse Rate 88 04/18/25 17:28 Respiratory Rate 18 04/18/25 17:28 Blood Pressure 122/84 04/18/25 17:28 Pulse Oximetry (%) 96 04/18/25 17:28 Oxygen Delivery Method Room Air 04/18/25 17:28 Patient is afebrile not tachycardic not tachypneic BP stable not hypoxic oxygen saturation is 96% in room air Dizziness MDM Narrative MDM Narrative:: This is a case of 45-year-old female with history of prediabetes came in in the emergency room due to dizziness and general weakness patient checked his blood sugar on the monitor and noted to be 65 patient also complaining of discomfort on the area of the glucose monitoring on the left arm but no redness no cellulitis persistence of the symptoms this patient decided to sought consult here in the emergency room physical examination patient is awake alert oriented not in distress nontoxic looking vital signs stable BP stable not tachycardic not tachypneic not hypoxic and oxygen saturation is normal on room air patient blood sugar checked and noted to be 85 patient neurological exam is normal awake alert oriented x 4 no focal deficit GCS 15/15 steady gait memory intact no facial droop no slurring of speech CN II to XII is normal motor or sensory reflex were normal negative Babinski PERRL EOM intact no papilledema no hyphema lung sound is clear no crackles no rales no retraction no stridor heart normal rate regular rhythm normal murmur the rest of the physical examination neurological exam is normal and unremarkable blood test showed no leukocytosis no anemia kidney liver function is normal no electrolyte imbalance glucose is 85 anion gap is normal not DKA urinalysis showed WBC in the urine suggestive of urinary tract infection EKG showed sinus rhythm at 80 and troponin is negative at this point dizziness is not cardiac origin nor neurological origin patient will follow-up with PCP in 2 days for reevaluation and if the symptoms persist he needs to see a neurologist for further evaluation and treatment she was advised also to return to the clinic to remove the glucose monitoring on the left upper arm at this point there is no signs and symptoms of infection no cellulitis no abscess thus I will not remove the glucose monitoring on the left upper arm patient will also return to the PCP to monitor his blood sugar return precaution to the ER for worsening symptoms he is advised Patient was discharged with comfortable condition walking with stable gait. Patient verbalized no further complains explained diagnosis and answered patient question. Patient is comfortable with the proposed management plan including the need to follow up with his/her primary care physician and any specialist if applicable Discussed patient for any urgent condition or worsening sx, He/She needed to go to emergency room immediately or call 911. Patient acknowledge the responsibility to follow up as instructed and to monitor her/his symptoms. For any persistence of the symptoms for more than 3-5 days return precaution advised. Discussed the result of the test and was given printed discharge instruction Patient data External records reviewed:: [facility] previous records Clinical information provided by:: patient and family Social determinants that could affect healthcare access:: none Patient has the following chronic illnesses:: None How is presenting disease/condition affected by chronic disease/condition?: no chronic disease Evaluation data The following diagnostics were reviewed and interpreted by me:: lab results and EKG tracing(s) Lab and/or radiology exams considered but not ordered:: Reviewed Interpretation Summary: Reviewed Medications / Prescriptions Medications or Prescriptions considered but not ordered:: Given Medication administrations:: Given Consultations Consultation(s) initiated? (list below): No Diagnosis Dizziness Differential Diagnosis: benign paroxysmal positional vertigo, orthostatic hypotension and other (Urinary tract infection otitis media hypoglycemia) Most likely diagnosis given after review of the tests above:: Urinary tract infection dizziness general weakness abnormal glucose Admission Indicated Admission indicated?: not indicated Explain why admission is indicated or not indicated:: Not indicated Admission Request Was there a request for admission?: No Admission Attestation Admission request attestation: Not indicated Disposition Plan Disposition Plan: Discharge Discharge Attestation Discharge Attestation: The patient and all family members were given an opportunity to ask questions and understood the discharge instructions. Discharge instructions specifically effects, indications for sooner follow up or return to the emergency department, and the expected course of current diagnosis. Patient condition: Stable Discharge Plan Plan Patient Disposition: HOME (Self Care) Patient condition on transfer: Stable Prescriptions/Referrals Prescriptions/Med Rec: New nitrofurantoin monohyd/m-cryst [Macrobid] 100 mg capsule 100 mg PO BID Qty: 20 0RF Rx Instructions: must administer with a meal/food No Action meloxicam 7.5 mg tablet 7.5 mg PO QDAY Qty: 45 3RF azithromycin 250 mg tablet See Rx Instructions .ROUTE .COMPLEX Qty: 6 0RF Rx Instructions: For 250 mg dose pack: take 500 mg today (day 1), then 250 mg for 4 days (days 2-5) ibuprofen 600 mg tablet 600 mg PO TID PRN (Reason: fever or pain) Qty: 30 0RF diphenhydramine HCl [Benadryl] 25 mg capsule 25 mg PO Q8H PRN (Reason: allergic symptoms) Qty: 30 0RF ibuprofen 800 mg tablet 800 mg PO Q6H PRN (Reason: pain) Qty: 14 0RF ibuprofen 800 mg tablet 800 mg PO Q6H PRN (Reason: pain) Qty: 14 0RF Referrals: No Primary/Family,Physician [Primary Care Provider] - In 1 week Problem List Clinical Impression: Generalized weakness, Dizziness, Abnormal glucose, Urinary tract infection Patient/Caregiver Discharge Instructions Education Materials: Prediabetes, Urinary Tract Infections in Women, Glucose Check Steps, ED Dizziness, Uncertain Cause, ED Weakness (Uncertain Cause) Additional Instructions: Follow-up with your primary care physician in 2 days for reevaluation worsening symptoms or any emergent concern call 911 or go to the nearest emergency room it is very important to see your primary care physician to monitor your blood sugar return to the clinic to remove your glucose monitoring and to fix your machine diabetic diet is advised take your medication as directed and finish the course of antibiotic keep hydrated Print Language: Surinamese Stand Alone Forms: Meg Award Info., Patient Portal Info Letter PA/HAND CEMENTER Supervising Physician PA/HAND CEMENTER Supervising Physician:
== END 2025-04-18 20:49 | disposition home or self-care (01) ==
PROVIDERS: Nurse Practitioner Family; Emergency Provider Emergency Medicine
DX: R42 Dizziness and giddiness (principal); R73.09 Other abnormal glucose; N39.0 Urinary tract infection, site not specified; R53.1 Weakness; R94.31 Abnormal electrocardiogram [ECG] [EKG]
CPT/HCPCS: 36415; 80053; 81001; 84484; 84703; 85025; 93005; 99283

== ENCOUNTER 2025-07-01 09:50 | Outpatient (AMB) | payer MEDICAID, SELFPAY ==
--- NOTE | 2025-07-01 10:15 | PD.ORTHCLVIS ---
Vital signs 07/01/25 10:30 Height 1.52 m Height Method Stated Weight 75.92 kg Weight Measurement Method Standing Scale BMI 32.8 BP 125/80 Blood Pressure Source Automatic Cuff Blood Pressure Location Left Upper Arm Position Sitting Respiration 20 Pulse 78 Pulse Source Monitor Temp 97.8 F Temp Source Temporal Artery Scan Pulse Oximetry (%) 98 Oxygen Delivery Method Room Air Med/Allergies Allergies & Medications Allergies No Known Allergies Allergy (Verified 07/01/25 10:31) Medication Reconciliation azithromycin 250 mg tablet See Rx Instructions PO .COMPLEX #6 tabs 06/04/22 [Rx Confirmed 07/01/25] ibuprofen 600 mg tablet 600 mg PO TID PRN fever or pain #30 tabs 06/04/22 [Rx Confirmed 07/01/25] diphenhydramine HCl 25 mg capsule (Benadryl) 25 mg PO Q8H PRN allergic symptoms #30 caps 11/10/24 [Rx Confirmed 07/01/25] ibuprofen 800 mg tablet 800 mg PO Q6H PRN pain #14 tabs 12/19/24 [Rx Confirmed 07/01/25] ibuprofen 800 mg tablet 800 mg PO Q6H PRN pain #14 tabs 02/28/25 [Rx Confirmed 07/01/25] meloxicam 7.5 mg tablet 7.5 mg PO QDAY #45 tabs 03/30/25 [Rx Confirmed 07/01/25] nitrofurantoin monohydrate/macrocrystals 100 mg capsule (Macrobid) 100 mg PO BID #20 caps 04/18/25 [Rx Confirmed 07/01/25] Exam Exam Patient is in no acute distress and is cooperative with the examination today. Breathing is nonlabored. In no respiratory distress. Bilateral extremities were evaluated and demonstrates sensation intact to light touch. Palpable pedal pulses are present. No significant edema is present. Bilateral hips were examined. The patient has no pain with log roll of the hips. Internal rotation to 30 degrees and external rotation to 30 degrees is painless. Negative FADIR. The left knee was examined. The left knee is in varus alignment. Range of motion from 0-115 degrees. Knee is stable to varus and valgus as well as AP translation with <5mm. Patient has a negative McMurrays. There is no pain with patellofemoral compression and no crepitus noted. The knee is tender to palpation medially. The right knee was also examined. The right knee is in varus alignment. Range of motion from 0-120 degrees. Knee is stable to varus and valgus as well as AP translation with <5mm. Patient has a negative McMurrays. There is no pain with patellofemoral compression and no crepitus noted. The knee is tender to palpation medially. Bilateral knee x-rays reviewed that are nonweightbearing. Demonstrates significant osteophytes medially and joint space narrowing Assessment and Plan Problem List (1) Degenerative arthritis of knee, bilateral: Status: Acute Plan: Patient is a pleasant 45-year-old female with bilateral knee pain and bilateral knee arthritis. We discussed different treatment options. We discussed nonoperative and operative options. She would like to try cortisone injections today Recommend knee cortisone injection as patient would like to proceed with conservative treatment at this time. The risks and benefits of the procedure were reviewed with the patient and patient gave verbal consent to continue with the procedure. Procedure: performed by Dr. Bello Using sterile technique the Right knee was thoroughly prepped with alcohol, and approximately 1 cc of Depo-Medrol 80mg/mL and 4 cc of 0.2% ropivacaine was injected without resistance into the medial tibial femoral joint space. The patient tolerated the procedure. Office Procedures GNS Level of Care Nursing/Assessment Patient Status: Established Patient Nursing Assessment/Reassesment: Medication Reconciliation, Update PMH in EMR and Vital Signs Coordination of Care: Complex Care and Chronic Disease 1-5, Education Complex Pt/Fam, Consent,records obtained, informed consent, Results/Orders obtained and Staff clarify orders Special Needs: Language special needs Established Patient Charge Established Patient Point Assignment: 95 Established Patient Point Charge: EP Level 3 (80-115) Surgical Proc/IM SQ injection Minor Surgical Procedure: Yes (RIGHT KNEE INJECTION) Medication Given Medication Given Medication Given: Yes Documented Dose Given: 1 Route: Infiitration Medication Given Medication Given Medication Given: Yes Documented Dose Given: 4 Route: Infiitration Office Meds methylprednisolone acetate 80 mg/mL suspension for injection Performing Provider: Nehemiah Bello MD Performing Location: [facility] Administered by: Nehemiah Bello MD on 07/01/25 11:50 Dose Route Admin Location Dispensed Lot Number Expiration Date Package [facility] Aquatics Assistant Department Head 80 mg intra-articular 1 mL [id number] 03/17/27 [address]-1 [id number] [employer] ropivacaine (PF) 2 mg/mL (0.2 %) injection solution Performing Provider: Nehemiah Bello MD Performing Location: [facility] Administered by: Nehemiah Bello MD on 07/01/25 11:50 Dose Route Admin Location Dispensed Lot Number Expiration Date Package NDC NDC Aquatics Assistant Department Head 20 mL Infiltration 20 mL [id number] 09/17/27 89037-089-23 [id number] [facility] Intake Visit Data Collection New Patient or Established: Established Patient (seen at [facility] within 3 years) Reason for Visit:: BL KNEE INJ-ONLY RIGHT HURTS Seen by Clinical Staff ONLY (RN/MA): No Cement Paver Required: Yes PCP or OBGYN visit in last 3 months: Yes Hx Now: No Do You Feel Safe at Home: Yes Authorities Contacted: N/A Questionairres Past Medical History Past Medical History Have you ever been diagnosed with any of the following: Respiratory Problems Smoking: No Smoking Cessation Counseling: No Smoking Exposure: No Subjective Visit Visit for: follow up visit, knee (RIGHT) and injections Immunization / Flu Flu Vaccine in the Last 12 Months: Yes Flu Vaccine Exclusion Criteria: Already Received History of Present Illness Chief complaint: OSTEOARTHRITIS BILATERAL KNEE Date of injury / onset of symptoms: 3 YEARS AGO Patient is a 45-year-old female with bilateral knee pain of equal severity. Has been ongoing for 3 years. She has had injections in the past and reports they still work. The pain is affecting her quality and happiness. She has also tried ibuprofen 800 mg. She did well with the last injections and would like a right knee injection today Personal History Occupation: [employer] Red flag PMH: none BMI Counceling provided: Yes Pain Pain level (0-10): 9 Pain location: outside (lateral) Pain quality: aching Pain timing: night and stairs Associated signs & symptoms: none Ambulatory data Ambulatory device: none Treatments Number of previous injections: 4 Improvement with previous injections: Yes Number of Physical Therapy sessions: 0 Improvement with PT: No Improvement with NSAIDS: yes Review of Systems Review of Systems: All systems negative unless otherwise noted in HPI.
[2025-07-01 10:30] VITALS: BP 125/80; PULSE 78; RESP 20; TEMP 36.6; O2SAT 98; BMI 32.8
== END 2025-07-01 10:41 | disposition home or self-care (01) ==
LOC: HODSRG 09:50
PROVIDERS: PCP Internal Medicine; Referring Provider Internal Medicine; Supervising Provider Orthopaedic Surgery Adult Reconstructive Orthopaedic Surgery; Visit Provider Orthopaedic Surgery Adult Reconstructive Orthopaedic Surgery
DX: M17.0 Bilateral primary osteoarthritis of knee (principal)
CPT/HCPCS: 20610; 99213; J1010; J2795; G0463